=== PATIENT | female | born 2000 | race African-American/Black ===

== ENCOUNTER 2022-09-01 15:14 | Emergency (ER) | payer MEDICAID ==
[~2022-09-01] VITALS: Ht 167.6 cm; Wt 77.2 kg
[2022-09-01 15:24] VITALS: BP 118/90
[2022-09-01] MEDS ORDERED: ACETAMINOPHEN 325MG TABLET PO ONE (16:15)
[2022-09-01] MEDS ORDERED: IBUP-1523 MT (18:04)
[2022-09-01] MEDS ORDERED: TOPUD MT (18:04)
== END 2022-09-01 18:17 | disposition home or self-care (01) ==
LOC: ER 15:14
DX: S83.91XA Sprain of unspecified site of right knee, initial encounter (principal); W50.2XXA Accidental twist by another person, initial encounter; Y93.89 Activity, other specified; Y92.89 Other specified places as the place of occurrence of the external cause; Y99.8 Other external cause status
CPT/HCPCS: 73562; 99283